=== PATIENT | male | born 1950 | race Two or more races ===

== ENCOUNTER 2017-07-01 20:30 | Emergency (ER) | payer MEDICARE, OTHER ==
[2017-07-01 20:39] VITALS: BP 141/87; PULSE 64; TEMP 98.2; BMI 31.1
[2017-07-01] MEDS ORDERED: KETOROLAC TROMETHAMINE 30 MG/1 ML VIAL IM ONE (21:32)
--- NOTE | 2017-07-01 21:33 | PDOC ---
History of Present Illness - General Chief Complaint: Pain, Acute Stated Complaint: KNEE PAIN Time Seen by Provider: 07/01/17 21:22 History Source: Patient Exam Limitations: No Limitations - History of Present Illness Initial Comments: 07/01/17 21:34 This is a 66-year-old man with past medical history of hyperlipidemia, CAD with one stent who presents emergency Department with 1 week of atraumatic right knee pain. Patient states approximately one week ago he was at rest when he started to feel pain in his right knee. Reports the pain started as a sharp stabbing sensation to the lateral side of his right knee and is slowly progressed in intensity now rated 7/10. He denies any trauma, slips, sudden stops, fever, chills, calf pain, shortness of breath, chest pain. Past History - Past Medical History Allergies/Adverse Reactions: Allergies Allergy/AdvReac Type Severity Reaction Status Date / Time No Known Allergies Allergy Verified 07/01/17 20:39 Home Medications: Ambulatory Orders Aspirin [Olga Chewable] 81 mg PO DAILY 05/01/15 Carvedilol 6.25 mg PO DAILY 05/01/15 Lisinopril [Prinivil -] 5 mg PO DAILY 05/01/15 Lovastatin 40 mg PO DAILY 05/01/15 Meclizine HCl [Antivert -] 25 mg PO QID #60 tablet 05/01/15 Meclizine HCl [Travel Sickness] 25 mg PO PRN 05/01/15 Meloxicam [Mobic (Nf) -] 15 mg PO DAILY 05/01/15 Cardiac Disorders: Yes COPD: No HTN: Yes Hypercholesterolemia: Yes - Surgical History Cardiac Surgery: Yes (stent) - Immunization History Immunization Up to Date: Yes - Suicide/Smoking/Psychosocial Hx Smoking History: Never smoked Have you smoked in the past 12 months: No Hx Alcohol Use: No Drug/Substance Use Hx: No Substance Use Type: None Review of Systems - Review of Systems Able to Perform ROS?: Yes Is the patient limited Swazi proficient: No Constitutional: No: Symptoms Reported HEENTM: No: Symptoms Reported Respiratory: No: Symptoms reported Cardiac (ROS): No: Symptoms Reported ABD/GI: No: Symptoms Reported : No: Symptoms Reported Musculoskeletal: Yes: See HPI Integumentary: No: Symptoms Reported Neurological: No: Symptoms reported *Physical Exam - Vital Signs Last Vital Signs Temp Pulse Resp BP Pulse Ox 98.2 F 64 18 141/87 100 07/01/17 20:36 07/01/17 20:36 07/01/17 20:36 07/01/17 20:36 07/01/17 20:36 - Physical Exam General Appearance: Yes: Appropriately Dressed. No: Apparent Distress HEENT: positive: Normal ENT Inspection Neck: positive: Trachea midline, Supple Respiratory/Chest: positive: Lungs Clear, Normal Breath Sounds. negative: Respiratory Distress, Accessory Muscle Use Cardiovascular: positive: Regular Rhythm, Regular Rate. negative: Murmur Vascular Pulses: Dorsalis-Pedis (R): 2+, Doralis-Pedis (L): 2+ Gastrointestinal/Abdominal: positive: Normal Bowel Sounds, Soft. negative: Tender Musculoskeletal: positive: Normal Inspection. negative: CVA Tenderness Extremity: positive: Normal Inspection, Normal Range of Motion, Other ( Varicosities noted on bilateral lower extremities. no cords palpable. ). negative: Swelling, Calf Tenderness, Erythema Integumentary: positive: Normal Color, Dry, Warm Neurologic: positive: Alert, Normal Response, Motor Strength 5/5 ED Treatment Course - RADIOLOGY Radiology Studies Ordered: Category Date Time Status KNEE 3 POS-RIGHT [RAD] Stat Radiology 07/01/17 21:32 Ordered Medical Decision Making - Medical Decision Making 07/01/17 21:36 A/P: 66-year-old male with history of hyperlipidemia, CAD with stent with atraumatic right knee pain for one week No bony tenderness to the femur, patella, tibia or fibula Patient reports increased pain with flexion of 90 No calf tenderness No palpable cords in bilaterally No erythema or swelling present in Calves Toradol, x-ray, reassess 07/01/17 22:01 X-ray is read by me: No fractures, dislocation or subluxation present. We'll discharge the patient home with knee immobilizer with her condition and follow-up with orthopedics if symptoms are not resolving within the next 7 days. *DC/Admit/Observation/Transfer Diagnosis at time of Disposition: Right anterior knee pain - Discharge Dispostion Disposition: HOME Condition at time of disposition: Stable Admit: No - Referrals Referrals: Ervin Diaz MD [Primary Care Provider] - Juan Manuel Macario MD [Staff Physician] - - Patient Instructions Additional Instructions: Take Tylenol or Motrin as needed for pain. Follow manufacturers instructions for appropriate dosage. Try not to walk or bear weight on your right knee as much as possible for the next 3 days. Apply ice for 20 minutes and removed for at least 20 minutes before reapplying the ice. Keep immobilizer on your knee as much as possible to help decrease some of the swelling control pain. You've been given the number for an orthopedist. If symptoms do not resolve within the next 7 days call the orthopedist for further evaluation. Return to emergency department for discoloration of the foot, numbness or tingling to the foot, worsening pain, or any other concerns. Thank you very much for choosing us to provide your emergent healthcare needs. - Post Discharge Activity
[2017-07-01] MEDS ORDERED: KETOROLAC TROMETHAMINE 30 MG/1 ML VIAL ONE (21:43)
== END 2017-07-02 00:40 | disposition home or self-care (01) ==
LOC: JER 20:30
PROC: 3E0233Z Introduction of Anti-inflammatory into Muscle, Percutaneous Approach (ICD-10-PCS; principal; 2017-07-01)
DX: M25.561 Pain in right knee (principal); I25.10 Atherosclerotic heart disease of native coronary artery without angina pectoris; I10 Essential (primary) hypertension; Z95.5 Presence of coronary angioplasty implant and graft; E78.5 Hyperlipidemia, unspecified
CPT/HCPCS: 73562-TC-RT-FY; 96372; 99284-25

== ENCOUNTER 2018-08-02 11:10 | Day surgery (SDC) | payer OTHER, MEDICARE | END 2018-08-02 15:25 | disposition home or self-care (01) | LOC: JASU-ENDO 11:10 ==

== ENCOUNTER 2019-03-22 17:39 | Emergency (ER) | payer OTHER ==
[2019-03-22 17:44] VITALS: BP 128/82; PULSE 67; TEMP 98
--- NOTE | 2019-03-22 17:44 | PDOC ---
Rapid Medical Evaluation Time Seen by Provider: 03/22/19 17:41 Medical Evaluation: Allergies Allergy/AdvReac Type Severity Reaction Status Date / Time No Known Allergies Allergy Verified 07/01/17 20:39 03/22/19 17:41 HPI:R shoulder pain after fall last night No LOC or head injury PE: Ambulates no gross deficits; Bears weight on RUE no gross deficits ORDERS: R shoulder x-ray Discharge Disposition - Diagnosis Right shoulder pain - Referrals - Patient Instructions - Post Discharge Activity
--- NOTE | 2019-03-22 18:21 | PDOC ---
History of Present Illness - General Chief Complaint: Injury Stated Complaint: FALL Time Seen by Provider: 03/22/19 17:41 History Source: Patient Exam Limitations: No Limitations - History of Present Illness Initial Comments: 03/22/19 18:15 Patient is a 68-year-old male history of hypertension complaining of right shoulder pain since last night. Patient states that he was walking down the steps in the dark when he missed a step and fell on the right side hitting his right shoulder. States pain is 8/10 throbbing, radiating to the neck and to the the arm. He has taken Tylenol for the pain last dose was 1 PM. He is unable to lift his arm above the head. There was no head strike or LOC. Denies nausea, vomiting. PMD: Dr. Diaz PMHX: as above PSOCHX: occ etoh, neg drug, neg cig ALL: NKDA GENERAL/CONSTITUTIONAL: [No fever or chills. No weakness. No weight change.] HEAD, EYES, EARS, NOSE AND THROAT: [No change in vision. No ear pain or discharge. No sore throat.] CARDIOVASCULAR: [No chest pain or shortness of breath.] RESPIRATORY: [No cough, wheezing, or hemoptysis.] GASTROINTESTINAL: [No nausea, vomiting, diarrhea or constipation. No rectal bleeding.] GENITOURINARY: [No dysuria, frequency, or change in urination.] MUSCULOSKELETAL: (+) joint or muscle swelling or pain. No neck or back pain.] SKIN AND BREASTS: [No rash or easy bruising.] NEUROLOGIC: [No headache, vertigo, loss of consciousness, or loss of sensation.] PSYCHIATRIC: [No depression or anxiety.] ENDOCRINE: [No increased thirst. No abnormal weight change.] HEMATOLOGIC/LYMPHATIC: [No anemia, easy bleeding, or history of blood clots.] ALLERGIC/IMMUNOLOGIC: [No hives or skin allergy. No latex allergy.] GENERAL: [The patient is awake, alert, and fully oriented, in no acute distress. ] HEAD: [Normal with no signs of trauma.] EYES: [Pupils equal, round and reactive to light, extraocular movements intact, sclera anicteric, conjunctiva clear.] ENT: [Ears normal, nares patent, oropharynx clear without exudates. Moist mucous membranes.] NECK: [Normal range of motion, supple without lymphadenopathy, JVD, or masses.] LUNGS: [Breath sounds equal, clear to auscultation bilaterally. No wheezes, and no crackles.] HEART: [Regular rate and rhythm, normal S1 and S2 without murmur, rub.] ABDOMEN: [Soft, nontender, normoactive bowel sounds. No guarding, no rebound. No masses.] EXTREMITIES: [Decreased range of motion of right arm to extension, no edema, tenderness over anterior deltoid, no clubbing or cyanosis. No cords, erythema, or tenderness.] NEUROLOGICAL: [Cranial nerves II through XII grossly intact. Normal speech, normal gait.] PSYCH: [Normal mood, normal affect.] SKIN: [Warm, Dry, normal turgor, no rashes or lesions noted.] Past History - Past Medical History Allergies/Adverse Reactions: Allergies Allergy/AdvReac Type Severity Reaction Status Date / Time No Known Allergies Allergy Verified 03/22/19 17:44 Home Medications: Ambulatory Orders Aspirin [Olga Chewable Aspirin] 81 mg PO DAILY 05/01/15 Carvedilol 6.25 mg PO DAILY 05/01/15 Lisinopril [Prinivil] 5 mg PO DAILY 05/01/15 Lovastatin 40 mg PO DAILY 05/01/15 Meloxicam [Mobic (Nf) -] 15 mg PO DAILY 05/01/15 Cardiac Disorders: Yes (CAD) COPD: No HTN: Yes Hypercholesterolemia: Yes - Surgical History Cardiac Surgery: Yes (S/P CARDIAC STENT) - Immunization History Immunization Up to Date: Yes - Psycho Social/Smoking Cessation Hx Smoking History: Never smoked Have you smoked in the past 12 months: No Hx Alcohol Use: No Drug/Substance Use Hx: No Substance Use Type: None *Physical Exam - Vital Signs Last Vital Signs Temp Pulse Resp BP Pulse Ox 98 F 67 18 128/82 98 03/22/19 17:41 03/22/19 17:41 03/22/19 17:41 03/22/19 17:41 03/22/19 17:41 Medical Decision Making - Medical Decision Making 03/22/19 18:15 Patient is a 68-year-old male history of hypertension complaining of right shoulder pain since last night. Patient states that he was walking down the steps in the dark when he missed a step and fell on the right side hitting his right shoulder. States pain is 8/10 throbbing, radiating to the neck and to the the arm. He has taken Tylenol for the pain last dose was 1 PM. He is unable to lift his arm above the head. There was no head strike or LOC. Denies nausea, vomiting. Symptoms consistent with a mechanical fall complaining of right shoulder pain. X-ray Motrin Reassess Plan to discharge if stable X-ray negative for fracture I discussed the physical exam findings, ancillary test results and final diagnoses with the patient. I answered all of the patient's questions. The patient was satisfied with the care received and felt comfortable with the discharge plan and treatment plan. The Patient agrees to follow up with the primary care physician within 24-72 hours.03/22/19 18:46 Discharge - Discharge Information Problems reviewed: Yes Clinical Impression/Diagnosis: Right shoulder pain Qualifiers: Chronicity: acute Qualified Code(s): M25.511 - Pain in right shoulder Condition: Stable Disposition: HOME - Follow up/Referral Referrals: Ervin Diaz MD [Primary Care Provider] - Gabe Gonsalez MD [Staff Physician] - - Patient Discharge Instructions Patient Printed Discharge Instructions: DI for Shoulder Pain Additional Instructions: Your Discharge Instructions: You must call primary care physician within 24 hours to arrange follow-up. Return to the Emergency Department with any new, persistent or worsening symptoms, for fever, chills, SOB, dizziness or any other concerning changes that may occur. You must follow-up with orthopedist for further evaluation and management. You may have sprained or torn muscle. Wear your sling until you see the orthopedist. - Post Discharge Activity
[2019-03-22] MEDS ORDERED: LIDOCAINE 5% TOPICAL PATCH TP ONE (18:51)
[2019-03-22] MEDS ORDERED: LIDOCAINE 5% TOPICAL PATCH ONE (18:51)
[2019-03-22] MEDS ORDERED: LIDOCAINE PATCH REMOVAL MC SCH (22:00)
== END 2019-03-22 18:55 | disposition home or self-care (01) ==
LOC: JERFT 17:39
DX: S49.81XA Other specified injuries of right shoulder and upper arm, initial encounter (principal); M25.511 Pain in right shoulder; W10.8XXA Fall (on) (from) other stairs and steps, initial encounter; Y93.89 Activity, other specified; Y92.89 Other specified places as the place of occurrence of the external cause; Y99.8 Other external cause status; I25.10 Atherosclerotic heart disease of native coronary artery without angina pectoris; I10 Essential (primary) hypertension; Z95.5 Presence of coronary angioplasty implant and graft; E78.00 Pure hypercholesterolemia, unspecified; Z79.82 Long term (current) use of aspirin
CPT/HCPCS: 73030-TC-RT-FY; 99281-25

== ENCOUNTER 2020-12-13 01:22 | Observation (INO) | payer OTHER ==
[2020-12-13 01:30] VITALS: BMI 27.1
[2020-12-13] MEDS ORDERED: morphine SULFATE 4 MG/ML VIAL ONE ×2 (01:41→04:42)
[2020-12-13 02:49] LABS: WHITE BLOOD COUNT 7.2 K/mm3 (4.0-10.0)
[2020-12-13 02:50] LABS: BASO % 0.6 % (0-2.0); EOS % 3.1 % (0-4.5); HEMATOCRIT 42.5 % (35.4-49); HEMOGLOBIN 14.5 GM/dL (11.7-16.9); LYMPH % 18.5 % (8-40); MCH 29.6 pg (25.7-33.7); MCHC 34.1 g/dl (32.0-35.9); MEAN CELL VOLUME 86.9 fl (80-96); MONO % 4.7 % (3.8-10.2); NEUT % 73.1 % (42.8-82.8); PLATELET COUNT 257 10^3/uL (134-434); RBC 4.89 M/mm3 (4.00-5.60); RDW 13.3 % (11.9-15.9)
[2020-12-13 02:52] LABS: INR 0.86 (0.83-1.09); PROTHROMBIN TIME (PATIENT) 10.5 SEC (9.7-13.0)
[2020-12-13 02:53] LABS: ACTIVATED PTT 29.2 SECONDS (25.2-36.5)
[2020-12-13 03:12] LABS: BLOOD UREA NITROGEN 16.8 mg/dL (7-18); CREATININE 0.9 mg/dL (0.55-1.3)
[2020-12-13 03:13] LABS: ALBUMIN 3.7 g/dl (3.4-5.0); BILIRUBIN,TOTAL 0.3 mg/dL (0.2-1); CALCIUM 8.8 mg/dL (8.5-10.1); MAGNESIUM 2.2 mg/dL (1.8-2.4); TOT PROT 7.4 g/dl (6.4-8.2)
[2020-12-13] MEDS ORDERED: morphine CARPU-JECT 4 MG/1 ML DISP.SYRIN IVPUSH ONE ×2 (04:40→04:41)
[2020-12-13] MEDS ORDERED: LORazepam 2 MG/ML SDV VIAL IVPUSH ONE (05:33)
[2020-12-13] MEDS ORDERED: DIPHTH,PERTUSS(ACELL),TET 0.5 ML DISP.SYRIN IM ONE ×3 (05:34→06:49)
[2020-12-13] MEDS ORDERED: LORazepam 2 MG/ML SDV VIAL ONE (06:06)
[2020-12-13 11:54] VITALS: BP 122/76; PULSE 51
== END 2020-12-13 12:14 | disposition home or self-care (01) ==
LOC: JER 01:22 → JERBED 05:56
PROVIDERS: ADMIT Internal Medicine; ATTEND Internal Medicine
PROC: 3E0234Z Introduction of Serum, Toxoid and Vaccine into Muscle, Percutaneous Approach (ICD-10-PCS; principal; 2020-12-13)
DX: S43.005A Unspecified dislocation of left shoulder joint, initial encounter (principal); S09.90XA Unspecified injury of head, initial encounter; W18.39XA Other fall on same level, initial encounter; Y93.89 Activity, other specified; Y92.89 Other specified places as the place of occurrence of the external cause; I25.10 Atherosclerotic heart disease of native coronary artery without angina pectoris; I11.9 Hypertensive heart disease without heart failure; R42 Dizziness and giddiness; Z95.1 Presence of aortocoronary bypass graft
CPT/HCPCS: 36415; 70450-TC; 70486-TC; 71260-TC; 72125-TC; 73030-TC-LT-FY; 74177-TC; 80053; 82550; 82553; 82962; 83735; 84484; 85025; 85610; 85730; 90471; 90715; 93005; 93010; 96374; 96376; 99285-25; C9803; G0378; Q9967; U0003; U0005

== ENCOUNTER → 2021-06-09 | Day surgery (SDC) | payer OTHER | END | disposition home or self-care (01) | LOC: JRADIR 08:55 | PROVIDERS: ATTEND Internal Medicine Endocrinology, Diabetes & Metabolism | PROC: 0GBH3ZX Excision of Right Thyroid Gland Lobe, Percutaneous Approach, Diagnostic (ICD-10-PCS; principal; 2021-06-09) | PROC: BG44ZZZ Ultrasonography of Thyroid Gland (ICD-10-PCS; 2021-06-09) | DX: E04.1 Nontoxic single thyroid nodule (principal) | CPT/HCPCS: 10005; 76942; 88173; 88305-TC ==

== ENCOUNTER 2021-10-07 04:03 | Day surgery (SDC) | payer OTHER ==
[2021-10-06 13:49] VITALS: BMI 31.1
[2021-10-07] MEDS ORDERED: LIDOCAINE 1%/EPI 1:100000 (20 ML MULTI DOSE VIAL) ONE (07:28)
[2021-10-07] MEDS ORDERED: LIDOCAINE HCL 1%, 10 MG/ML (20ML VIAL) ONE (09:17)
[2021-10-07] MEDS ORDERED: MIDAZOLAM HCL 2 MG/2 ML SINGLE DOSE VIAL ONE (09:28)
[2021-10-07] MEDS ORDERED: OXYMETAZOLINE 0.05% NASAL SOLUTION 15 ML BOTTLE NS ONE ×2 (09:30→09:43)
[2021-10-07] MEDS ORDERED: LIDOCAINE HCL/PF 2% SDV 5ML VIAL ONE (09:32)
[2021-10-07] MEDS ORDERED: ROCURONIUM BROMIDE 50 MG/5 ML SYRINGE ONE (09:32)
[2021-10-07] MEDS ORDERED: ceFAZolin SODIUM 1 GM VIAL IVPB ONE (09:40)
[2021-10-07] MEDS ORDERED: ceFAZolin SODIUM 1 GM VIAL ONE (09:41)
[2021-10-07] MEDS ORDERED: LIDOCAINE HCL 1%, 10 MG/ML (20ML VIAL) SQ ONE (09:42)
[2021-10-07] MEDS ORDERED: LIDOCAINE 1%/EPI 1:100000 (20 ML MULTI DOSE VIAL) IJ ONE (10:00)
[2021-10-07] MEDS ORDERED: MICROFIBRILLAR COLLAGEN 1 GM EACH TP ONE (11:03)
[2021-10-07] MEDS ORDERED: PROPOFOL 20 ML ONE (11:06)
[2021-10-07] MEDS ORDERED: DESFLURANE GAS 240 ML BOTTLE IH ONE (11:18)
[2021-10-07] MEDS ORDERED: NEOSTIGMINE METHYLSULFATE 0.5 MG/ML - 10 ML MDV ONE (11:18)
[2021-10-07] MEDS ORDERED: oxyCODONE HCL 5 MG TABLET PO PRN (11:46)
[2021-10-07] MEDS ORDERED: ONDANSETRON 4 MG/2 ML VIAL IVPUSH PRN (11:46)
[2021-10-07] MEDS ORDERED: LACTATED RINGERS SOLUTION 1,000 ML IV SCH ×2 (12:00)
[2021-10-07] MEDS ORDERED: ACETAMINOPHEN INJECTION 100 ML IVPB ONE (13:20)
[2021-10-07] MEDS ORDERED: ACETAMINOPHEN 1000 MG/100 ML BAG IVPB ONE ×2 (13:25→16:28)
[2021-10-07] MEDS ORDERED: oxyCODONE HCL 5 MG TABLET ONE (14:15)
[2021-10-07] MEDS ORDERED: oxyCODONE HCL 5 MG TABLET PO ONE (14:15)
[2021-10-07 17:31] VITALS: PULSE 50; RESP 18; TEMP 97.8
[2021-10-07 17:41] VITALS: BP 140/72
== END 2021-10-07 16:40 | disposition home or self-care (01) ==
LOC: JASU-SURG 04:03
PROVIDERS: ATTEND Surgery
PROC: 0GTH0ZZ Resection of Right Thyroid Gland Lobe, Open Approach (ICD-10-PCS; principal; 2021-10-07 09:00)
DX: E04.2 Nontoxic multinodular goiter (principal)
CPT/HCPCS: 88307-TC; 94760

== ENCOUNTER 2021-10-23 18:17 | Day surgery (SDC) | payer OTHER ==
[2021-10-23] MEDS ORDERED: ACETAMINOPHEN 1000 MG/100 ML BAG IVPB ONE (19:54)
[2021-10-23] MEDS ORDERED: ACETAMINOPHEN INJECTION 100 ML IVPB ONE (20:12)
[2021-10-23 20:58] LABS: BASO % 0.5 % (0-2.0); EOS % 5.8 % (0-4.5); HEMATOCRIT 42.3 % (35.4-49); HEMOGLOBIN 14.4 GM/dL (11.7-16.9); LYMPH % 25.4 % (8-40); MCH 29.6 pg (25.7-33.7); MCHC 34.1 g/dl (32.0-35.9); MEAN CELL VOLUME 86.6 fl (80-96); MEAN PLT VOLUME 6.7 fl (7.5-11.1); MONO % 7.3 % (3.8-10.2); PLATELET COUNT 297 10^3/uL (134-434); RBC 4.88 M/mm3 (4.00-5.60); RDW 13.3 % (11.9-15.9)
[2021-10-23 21:06] LABS: INR 0.94 (0.83-1.09); PROTHROMBIN TIME (PATIENT) 10.8 SEC (9.7-13.0)
[2021-10-23 21:09] LABS: ACTIVATED PTT 31.7 SECONDS (25.2-36.5)
[2021-10-23 21:19] LABS: CALCIUM 9.1 mg/dL (8.5-10.1)
[2021-10-23 21:20] LABS: ALBUMIN 3.8 g/dl (3.4-5.0); BLOOD UREA NITROGEN 16.6 mg/dL (7-18)
[2021-10-23] MEDS ORDERED: LIDOCAINE HCL/PF 2% SDV 5ML VIAL ONE (21:20)
[2021-10-23] MEDS ORDERED: DEXAMETHASONE SOD PHOSPHATE 4 MG/1 ML VIAL ONE ×2 (21:20→21:26)
[2021-10-23] MEDS ORDERED: ROCURONIUM BROMIDE 50 MG/5 ML SYRINGE ONE (21:21)
[2021-10-23] MEDS ORDERED: MIDAZOLAM HCL 2 MG/2 ML SINGLE DOSE VIAL ONE (21:21)
[2021-10-23] MEDS ORDERED: PROPOFOL 40 ML ONE (21:21)
[2021-10-23] MEDS ORDERED: SUCCINYLCHOLINE CHLORIDE 200 MG/10 ML SYRINGE ONE (21:21)
[2021-10-23 21:24] LABS: BILIRUBIN,TOTAL 0.4 mg/dL (0.2-1); TOT PROT 7.6 g/dl (6.4-8.2)
[2021-10-23 22:09] LABS: EPI CELLS 1 /uL (0-25.1); HYALINE CASTS 0 /uL (0-3.1); URINE APPEARANCE CLEAR; URINE BACTERIA 4 /uL (0-1359); URINE BILIRUBIN NEGATIVE (NEGATIVE); URINE COLOR YELLOW; URINE GLUCOSE (UA) NEGATIVE (NEGATIVE); URINE KETONE NEGATIVE (NEGATIVE); URINE LEUK ESTERASE NEGATIVE (NEGATIVE); URINE NITRITE NEGATIVE (NEGATIVE); URINE PROTEIN 1+ (NEGATIVE); URINE RBC 4 /uL (0-23.9); URINE UROBILINOGEN 0.2 mg/dL (0.2-1.0); URINE WBC 2 /uL (0-25.8)
[2021-10-23] MEDS ORDERED: ceFAZolin SODIUM 1 GM VIAL IVPB ONE (22:54)
[2021-10-23] MEDS ORDERED: MICROFIBRILLAR COLLAGEN 1 GM EACH TP ONE (23:13)
[2021-10-23] MEDS ORDERED: LACTATED RINGERS SOLUTION 1,000 ML IV SCH ×2 (23:45)
[2021-10-23] MEDS ORDERED: ONDANSETRON 4 MG/2 ML VIAL IVPUSH PRN (23:48)
[2021-10-24 00:04] VITALS: RESP 18
[2021-10-24 04:40] VITALS: PULSE 62
[2021-10-24 05:08] VITALS: BMI 32.2
[2021-10-24 14:13] VITALS: BP 148/55; TEMP 97.8
== END 2021-10-24 18:04 | disposition home or self-care (01) ==
LOC: JER 18:17 → JASUSAT 23:02 → JOR 23:02 → J6S 10-24 01:09 → JOR 10-24 18:04
PROVIDERS: ATTEND Surgery
PROC: 0JC50ZZ Extirpation of Matter from Left Neck Subcutaneous Tissue and Fascia, Open Approach (ICD-10-PCS; principal; 2021-10-23 21:45)
DX: L76.32 Postprocedural hematoma of skin and subcutaneous tissue following other procedure (principal); Y83.8 Other surgical procedures as the cause of abnormal reaction of the patient, or of later complication, without mention of misadventure at the time of the procedure; Y81.3 Surgical instruments, materials and general- and plastic-surgery devices (including sutures) associated with adverse incidents; Y92.9 Unspecified place or not applicable
CPT/HCPCS: 36415; 70450-TC; 70491-TC; 71046-TC-FY; 80053; 81003; 84439; 84443; 84481; 84484; 85025; 85610; 85730; 86850; 86900; 86901; 87040; 87086; 93005; 93010; 94760; 99285-25; C9803-CS; Q9967; U0003; U0005

== ENCOUNTER 2022-08-06 22:10 | Emergency (ER) | payer OTHER ==
[2022-08-06 22:26] VITALS: BP 122/67; PULSE 61; RESP 17; TEMP 98.1; BMI 29.8
[2022-08-07] MEDS ORDERED: KETOROLAC TROMETHAMINE 15 MG/ML VIAL IM ONE (00:12)
[2022-08-07] MEDS ORDERED: KETOROLAC TROMETHAMINE 15 MG/ML VIAL ONE (00:15)
== END 2022-08-07 01:17 | disposition home or self-care (01) ==
LOC: JER 22:10
PROC: 3E033GC Introduction of Other Therapeutic Substance into Peripheral Vein, Percutaneous Approach (ICD-10-PCS; principal; 2022-08-06)
DX: M79.605 Pain in left leg (principal); R05.9 Cough, unspecified
CPT/HCPCS: 71046-TC-FY; 96372; 99284-25

== ENCOUNTER 2023-03-11 13:18 | Emergency (ER) | payer OTHER ==
[2023-03-11 13:24] VITALS: BMI 31.1
[2023-03-11] MEDS ORDERED: KETOROLAC TROMETHAMINE 30 MG/1 ML VIAL ONE (15:22)
[2023-03-11] MEDS: KETOROLAC TROMETHAMINE 30 MG/1 ML VIAL IVPUSH ONE (15:35)
[2023-03-11 15:43] LABS: BASO % 0.5 % (0-2.0); EOS % 2.4 % (0-4.5); HEMATOCRIT 41.5 % (35.4-49); HEMOGLOBIN 14.1 GM/dL (11.7-16.9); LYMPH % 18.2 % (8-40); MCH 30.4 pg (25.7-33.7); MCHC 33.9 g/dl (32.0-35.9); MEAN CELL VOLUME 89.7 fl (80-96); MEAN PLT VOLUME 7.2 fl (7.5-11.1); MONO % 7.9 % (3.8-10.2); PLATELET COUNT 234 10^3/uL (134-434); RBC 4.62 M/mm3 (4.00-5.60); RDW 13.7 % (11.9-15.9); WHITE BLOOD COUNT 8.4 K/mm3 (4.0-10.0)
[2023-03-11 15:51] LABS: INR 1.02 (0.83-1.09); PROTHROMBIN TIME (PATIENT) 11.8 SEC (9.7-13.0)
[2023-03-11 16:20] LABS: ERYTHROCYTE SEDIMENTATION RATE 15 mm/hr (0-20)
[2023-03-11 17:01] LABS: POTASSIUM 4.3 mmol/L (3.5-5.1)
[2023-03-11 17:02] LABS: CALCIUM 9.7 mg/dL (8.5-10.1)
[2023-03-11 17:03] LABS: ALBUMIN 3.7 g/dl (3.4-5.0); BLOOD UREA NITROGEN 23.1 mg/dL (7-18)
[2023-03-11 17:06] LABS: CREATININE 0.9 mg/dL (0.55-1.3)
[2023-03-11 17:08] LABS: BILIRUBIN,TOTAL 0.4 mg/dL (0.2-1); TOT PROT 7.1 g/dl (6.4-8.2)
[2023-03-11 18:42] VITALS: BP 135/73; PULSE 50; RESP 19; TEMP 97.9
== END 2023-03-11 18:49 | disposition home or self-care (01) ==
LOC: JER 13:18
PROC: 3E0333Z Introduction of Anti-inflammatory into Peripheral Vein, Percutaneous Approach (ICD-10-PCS; principal; 2023-03-11)
DX: R22.41 Localized swelling, mass and lump, right lower limb (principal); M25.571 Pain in right ankle and joints of right foot; R26.2 Difficulty in walking, not elsewhere classified
CPT/HCPCS: 36415; 73610-TC-RT-FY; 73630-TC-RT-FY; 80053; 85025; 85027; 85610; 85651; 85730; 86140; 93005; 93010; 93971-TC; 96374; 99285-25

== ENCOUNTER 2023-10-20 04:14 | Day surgery (SDC) | payer OTHER ==
[2023-10-19 11:46] VITALS: BMI 31.1
[2023-10-20 07:06] VITALS: PULSE 48; RESP 18
[2023-10-20] MEDS ORDERED: LIDOCAINE HCL/PF 1% SDV 5ML VIAL ONE (07:27)
[2023-10-20] MEDS ORDERED: DEXAMETHASONE SOD PHOSPHATE 10 MG/1 ML VIAL ONE (07:27)
[2023-10-20] MEDS: LIDOCAINE 1% P/F 10 MG/ML VIAL PNB ONE ×2 (08:53)
[2023-10-20] MEDS: IOHEXOL 180 MG/1 ML ML IJ ONE (08:53)
[2023-10-20] MEDS: DEXAMETHASONE SOD PHOSPHATE 10 MG/1 ML VIAL IVPUSH ONE (08:54)
[2023-10-20 10:04] VITALS: BP 118/72; TEMP 97.8
== END 2023-10-20 09:38 | disposition home or self-care (01) ==
LOC: JASU-SURG 04:14
PROVIDERS: ATTEND Pain Medicine Pain Medicine
PROC: 3E0R3BZ Introduction of Anesthetic Agent into Spinal Canal, Percutaneous Approach (ICD-10-PCS; 2023-10-20)
PROC: 3E0R33Z Introduction of Anti-inflammatory into Spinal Canal, Percutaneous Approach (ICD-10-PCS; principal; 2023-10-20 08:15)
DX: M48.061 Spinal stenosis, lumbar region without neurogenic claudication (principal); M54.16 Radiculopathy, lumbar region
CPT/HCPCS: 76000-TC-FY; J1100

== ENCOUNTER 2023-12-01 04:34 | Day surgery (SDC) | payer OTHER ==
[2023-11-29 10:41] VITALS: BMI 30.5
[2023-12-01] MEDS ORDERED: LIDOCAINE HCL/PF 1% SDV 5ML VIAL ONE (07:20)
[2023-12-01] MEDS ORDERED: DEXAMETHASONE SOD PHOSPHATE 10 MG/1 ML VIAL ONE (07:20)
[2023-12-01] MEDS ORDERED: ACETAMINOPHEN 500 MG TABLET (FP) PO PRN (09:33)
[2023-12-01 11:49] VITALS: RESP 18
[2023-12-01] MEDS: LIDOCAINE HCL 1% PRESERVATIVE FREE - 30ML VIAL IJ ONE (13:27)
[2023-12-01] MEDS: DEXAMETHASONE SOD PHOSPHATE 10 MG/1 ML VIAL IVPUSH ONE (13:27)
[2023-12-01] MEDS: IOHEXOL 180 MG/1 ML ML IJ ONE (13:27)
[2023-12-01 14:39] VITALS: BP 120/72; PULSE 70; TEMP 97.2
== END 2023-12-01 14:15 | disposition home or self-care (01) ==
LOC: JASU-SURG 04:34
PROVIDERS: ATTEND Pain Medicine Pain Medicine
PROC: 3E0R3BZ Introduction of Anesthetic Agent into Spinal Canal, Percutaneous Approach (ICD-10-PCS; 2023-12-01)
PROC: 3E0R33Z Introduction of Anti-inflammatory into Spinal Canal, Percutaneous Approach (ICD-10-PCS; principal; 2023-12-01 12:45)
DX: M54.16 Radiculopathy, lumbar region (principal)
CPT/HCPCS: 76000-TC-FY; J1100

== ENCOUNTER 2024-12-03 18:13 | Emergency (ER) | payer OTHER ==
[2024-12-03 18:26] VITALS: BMI 31.1
[2024-12-03 19:40] LABS: ABSOLUTE IMMATURE GRANULOCYTES 0.01 x10^3/uL (0.0-0.031); BASOPHILS # 0.03 x10^3/uL (0.01-0.08); EOSINOPHIL % 7.0 % (0.8-7.0); EOSINOPHILS # 0.45 x10^3/uL (0.04-0.54); MCHC 32.7 g/dl (32.3-36.5); MEAN CELL VOLUME 90.6 fl (79.0-92.2); MEAN PLT VOLUME 9.3 fl (9.4-12.4); MONOCYTE # 0.44 x10^3/uL (0.30-0.82); MONOCYTE % 6.9 % (5.3-12.2); RDW 12.7 % (12.2-16.6)
[2024-12-03] MEDS ORDERED: BENZONATATE 200 MG CAPSULE PO ONE (19:47)
[2024-12-03] MEDS ORDERED: ALBUTEROL SO4 0.083% IH SOL 2.5 MG/3 ML VIAL.NEB. NEB ONE (19:47)
[2024-12-03] MEDS: BENZONATATE 200 MG CAPSULE PO ONE (19:58)
[2024-12-03] MEDS: ALBUTEROL SO4 0.083% IH SOL 2.5 MG/3 ML VIAL.NEB. NEB ONE (19:58)
[2024-12-03 21:01] LABS: GLUCOSE,RANDOM 113.0 mg/dL (74-106); TOT PROT 7.4 g/dl (6.4-8.2)
[2024-12-03 21:02] LABS: CO2 23.0 mmol/L (21-32)
[2024-12-03 21:04] LABS: ALK PHOS 91.0 U/L (40-150)
[2024-12-03] MEDS ORDERED: ALBUTEROL SO4 HFA INHALER IH ONE (21:05)
[2024-12-03] MEDS: ALBUTEROL SO4 HFA INHALER IH ONE (21:06)
[2024-12-03 21:07] LABS: CREATININE 1.16 mg/dL (0.55-1.3); SGOT/AST 30.0 U/L (5-34); SGPT/ALT 21.0 U/L (0-55)
[2024-12-03 22:02] LABS: N-TERMINAL BNP 71.0 pg/ml (5-450)
[2024-12-03 22:38] VITALS: BP 107/67; PULSE 55; RESP 18; TEMP 98.2
== END 2024-12-03 22:38 | disposition home or self-care (01) ==
LOC: JER 18:13
PROC: 3E0F7GC Introduction of Other Therapeutic Substance into Respiratory Tract, Via Natural or Artificial Opening (ICD-10-PCS; principal; 2024-12-03)
DX: R06.02 Shortness of breath (principal); R05.9 Cough, unspecified; R07.9 Chest pain, unspecified
CPT/HCPCS: 36415; 71046-TC-FY; 80053; 83880; 84484; 85025; 87637-QW; 93005; 93010; 99285-25